=== PATIENT | male | born 1945 | race Hispanic/Latino ===

== ENCOUNTER → 2020-01-30 | Outpatient (CLI) | payer OTHER ==
[~2020-01-30] MED LIST: ASPI-1197 PO; ATOR40TA71 PO; FURO20TA4 PO; LOSA50TA64 PO; METO25TA6 PO; REGADENOSON 0.4 MG/5 ML PF SYG IVP SCH; WARF-57 PO
== END | disposition home or self-care (01) ==
LOC: SHCH 08:20
PROVIDERS: ATTEND Internal Medicine Cardiovascular Disease
DX: I25.9 Chronic ischemic heart disease, unspecified (principal); I25.10 Atherosclerotic heart disease of native coronary artery without angina pectoris
CPT/HCPCS: 78452; 93017; 96374; A9500 ×2

== ENCOUNTER → 2024-07-08 | Outpatient (CLI) | payer OTHER ==
[~2024-07-08] MED LIST changes: +DiphenhydrAMINE HCL 50 MG/ML VIAL ONE; +IOHEXOL 350 MG/ML 100ML INFUS..BTL IV ONE; +IOHEXOL-350 50ML VIAL IV ONE; -REGADENOSON 0.4 MG/5 ML PF SYG IVP SCH; +Solu-medROL 125MG VIAL ONE
== END | disposition home or self-care (01) ==
LOC: RAH 10:05
PROVIDERS: ATTEND Internal Medicine Cardiovascular Disease
DX: I70.203 Unspecified atherosclerosis of native arteries of extremities, bilateral legs (principal); M47.815 Spondylosis without myelopathy or radiculopathy, thoracolumbar region
CPT/HCPCS: 75635; J1200; J2919; Q9967 ×2